=== PATIENT | female | born 1985 | race Caucasian/White ===

== ENCOUNTER 2019-04-05 08:39 | Emergency (ER) | payer OTHER ==
[~2019-04-05] VITALS: Ht 162.6 cm; Wt 99.8 kg
== END 2019-04-05 12:10 | disposition home or self-care (01) ==
LOC: ER 08:39
DX: S20.212A Contusion of left front wall of thorax, initial encounter (principal); S20.211A Contusion of right front wall of thorax, initial encounter; S50.02XA Contusion of left elbow, initial encounter; V49.9XXA Car occupant (driver) (passenger) injured in unspecified traffic accident, initial encounter; Y93.89 Activity, other specified; Y92.488 Other paved roadways as the place of occurrence of the external cause; Y99.8 Other external cause status